=== PATIENT | male | born 1955 | race Caucasian/White ===

== ENCOUNTER 2022-07-07 07:10 | Observation (INO) | payer MEDICARE ==
[2022-07-07] VITALS (9 sets, daily range): BP systolic 110–128; BP diastolic 59–65
[~2022-07-07] VITALS: Ht 172.7 cm; Wt 64.4 kg
[~2022-07-07 07:10] MED LIST: DULOXETINE HCL20 MG PO; HYDROCODONE BIT1 TA7; PROTONIX40 M2 PO; TAMSULOSIN HCL0.4 MG PO; TRAZODONE50 MG PO
[2022-07-07 13:20] LABS: BASO% 0.5 % (0-3); EOS% 1.2 % (0-8); HEMATOCRIT 36.1 % (39.0-50.0); HEMOGLOBIN 11.4 g/dl (14.0-18.0); IMMATURE GRANULOCYTES 0.1 % (0.0-5.0); LYMPH% 10.1 % (15-41); MEAN CELL VOLUME 100.6 fL CALC (80.0-100.0); MEAN CORPUSCULAR HGB 31.8 pG CALC (26.0-32.0); MEAN CORPUSCULAR HGB CONC 31.6 g/dL CAL (32.0-36.0); MONO% 5.7 % (2-13); NEUT# 7.12 thou/uL (1.82-7.42); NEUT% 82.4 % (42-76); RED BLOOD COUNT 3.59 mill/uL (4.70-6.10); RED CELL DISTRI WIDTH 12.7 % (11.5-15.5)
[2022-07-07 13:31] LABS: ALBUMIN 3.5 g/dL (3.2-5.0); ALKALINE PHOSPHATASE 51 u/l (38-126); ANION GAP 10 (6-22 (CALC)); BILIRUBIN, TOTAL 0.3 mg/dL (0.2-1.3); BUN 21 mg/dL (8-23); BUN/CREATININE RATIO 30 (12-20 (CALC)); CARBON DIOXIDE 27 mmol/l (22-30); CHLORIDE 106 mmol/l (95-108); CREATININE 0.7 mg/dL (0.7-1.3); GFR FOR AFR.AMER. > 60 ML/MIN (>=60 (CALC)); GFR OTHER RACES > 60 ML/MIN (>=60 (CALC)); POTASSIUM 3.7 mmol/l (3.5-5.1); SGOT/AST 70 u/l (19-48); SODIUM 140 mmol/l (137-146); TOTAL PROTEIN 5.8 g/dL (6.3-8.2)
[2022-07-08 00:32] VITALS: BP 102/57
[2022-07-08 07:35] VITALS: BP 107/61
[2022-07-08 07:42] VITALS: BP 107/61
[2022-07-08 17:37] VITALS: BP 107/61
[2022-07-08 20:03] VITALS: BP 129/58
[2022-07-09 04:38] VITALS: BP 142/73
[2022-07-09 06:16] VITALS: BP 121/64
[2022-07-09 06:25] VITALS: BP 121/64
[2022-07-09] MEDS ORDERED: PERCOCET 5/325M1 TAB PO (10:08)
[2022-07-09 11:24] VITALS: BP 127/71
[2022-07-15] MEDS ORDERED: PERCOCET 5/321 COMBO PO (09:29)
[2022-07-15] MEDS ORDERED: PERCOCET1 TA4 PO (10:10)
== END 2022-07-09 12:45 | disposition home or self-care (01) ==
LOC: ORM 07:10 → MS2 12:35
PROVIDERS: ADMIT Surgery; ATTEND Surgery
PROC: 0DV44ZZ Restriction of Esophagogastric Junction, Percutaneous Endoscopic Approach (ICD-10-PCS; principal; 2022-07-07)
PROC: 0BQT4ZZ Repair Diaphragm, Percutaneous Endoscopic Approach (ICD-10-PCS; 2022-07-07)
DX: K44.9 Diaphragmatic hernia without obstruction or gangrene (principal); K21.9 Gastro-esophageal reflux disease without esophagitis; K50.90 Crohn's disease, unspecified, without complications; Z79.891 Long term (current) use of opiate analgesic
CPT/HCPCS: J0131; J0690; J1650